=== PATIENT | female | born 1960 | race Hispanic/Latino ===

== ENCOUNTER 2018-01-26 10:49 | Outpatient (CLI) | payer MEDICARE, MEDICAID ==
[~2018-01-26 10:49] MED LIST: ISOVUE-370 76%-LOCM 1 ML ONE
== END 2018-01-26 10:50 | disposition home or self-care (01) ==
LOC: BICCT 10:49
PROVIDERS: ATTEND Internal Medicine Gastroenterology
DX: R10.32 Left lower quadrant pain (principal); R10.33 Periumbilical pain
CPT/HCPCS: 74177

== ENCOUNTER 2018-01-26 13:37 | Outpatient (CLI) | payer MEDICARE, OTHER | END 2018-01-26 13:38 | disposition home or self-care (01) | LOC: BICMAMMO 13:37 | PROVIDERS: ATTEND Family Medicine | DX: Z12.31 Encounter for screening mammogram for malignant neoplasm of breast (principal); Z85.43 Personal history of malignant neoplasm of ovary | CPT/HCPCS: 77063; 77067 ==

== ENCOUNTER 2019-09-27 16:31 | Emergency (ER) | payer MEDICARE, OTHER ==
[2019-09-27] MEDS ORDERED: Ketorolac Tromethamine 30 MG/ML VIAL ONE (16:56)
--- NOTE | 2019-09-27 17:32 | RAD ---
3 views of the lumbar spine: 09/27/2019 COMPARISON: None HISTORY: Back pain FINDINGS: There is multilevel lower lumbar spine facet hypertrophy, most prominent at the lumbosacral junction. No significant anterolisthesis or retrolisthesis is noted. 6 nonrib-bearing lumbar-type vertebral bodies are noted. At T12-L1 there is disc space narrowing with degenerative endplate change and anterior osteophyte formation. No acute fracture is appreciated. IMPRESSION: Multilevel degenerative change. No acute osseous abnormality.
== END 2019-09-27 18:16 | disposition home or self-care (01) ==
LOC: ERS 16:31
DX: M54.42 Lumbago with sciatica, left side (principal); K21.9 Gastro-esophageal reflux disease without esophagitis; B20 Human immunodeficiency virus [HIV] disease; E78.5 Hyperlipidemia, unspecified; E78.00 Pure hypercholesterolemia, unspecified; F41.9 Anxiety disorder, unspecified; F32.9 Major depressive disorder, single episode, unspecified; Z79.899 Other long term (current) drug therapy
CPT/HCPCS: 72100; 96372; J1885

== ENCOUNTER 2020-01-18 20:53 | Emergency (ER) | payer MEDICARE, OTHER ==
[2020-01-18 21:50] LABS: #Lymphocytes 1.8 thou/uL (1.20-3.40); #Monocytes 0.3 thou/uL (0.11-0.59); #Neutrophils 3.5 thou/uL (1.40-6.50); %Basophils 0.3 % (0.0-1.0); %Eosinophils 0.3 % (0.0-10.0); %Monocytes 5.4 % (0.0-10.0); Hemoglobin 11.7 g/dL (12.0-16.0); Mean Corpuscular HGB CONC 33.6 g/dL (32.0-36.0); Mean Corpuscular Hemoglobin 33.2 pg (27.0-31.0); Mean Platelet Volume 8.6 fL (7.4-10.4); Platelet Count 221 thou/uL (130-400); RBC Distribution Width 10.7 % (11.5-14.5); Red Blood Cell (RBC) Count 3.51 mill/uL (4.20-5.40); White Blood Cell (WBC) Count 5.6 thou/uL (4.8-10.8)
[2020-01-18 22:07] LABS: ALT (SGPT) 21 U/L (8-55); AST (SGOT) 25 U/L (5-34); Alkaline Phosphatase 73 U/L (40-110); Anion Gap 14 mmol/L (10-20); BUN (Urea Nitrogen) 10 mg/dL (9.8-20.1); Bilirubin, Total 0.2 mg/dL (0.2-1.2); Calc. Creatinine Clearance 0 mL/min (70-130); Calcium 8.9 mg/dL (7.8-10.44); Carbon Dioxide 25 mmol/L (22-29); Chloride 101 mmol/L (98-107); Estimated GFR-MDRD 60; Globulin 3.3 g/dL (2.4-3.5); Glucose 113 mg/dL (70-105); Potassium 3.8 mmol/L (3.5-5.1); Protein, Total 7.3 g/dL (6.0-8.3); Sodium 136 mmol/L (136-145)
[2020-01-18 22:44] LABS: Bacteria/HPF None Seen HPF (None Seen); Bilirubin Negative (Negative); Blood, Urine Negative (Negative); Clarity Clear (Clear); Glucose, Urine (Dipstick) Normal (Negative); Leukocyte 500 Leu/uL (Negative); Nitrite Negative (Negative); Protein, Urine (Dipstick) 20 mg/dL (Neg-Trace); RBC/HPF 0-3 HPF (0-3); Squamous Epithelial 0-3 HPF (0-3); Urobilinogen Normal mg/dL (Less than 2); WBC/HPF 21-50 HPF (0-3)
[2020-01-18] MEDS ORDERED: cefTRIAXone\\ROCEPHIN 2 GM VIAL ONE (22:54)
--- NOTE | 2020-01-19 07:14 | RAD ---
PORTABLE CHEST: Date: 01/18/2020 PROVIDED CLINICAL HISTORY: Headache. Shortness of breath. Fever. FINDINGS: Comparison with 07/23/2016. Cardiac silhouette appears enlarged, which may be at least partially on the basis of portable techniq ue. Large hiatal hernia is redemonstrated. No lobar consolidation, pleural fluid, or pneumothorax ayo arent. IMPRESSION: No evidence for an acute cardiopulmonary process. POS: [facility]
[2020-01-20 11:46] LABS: SARS-CoV-2 MS2 Positive; SARS-CoV-2 N Gene Positive; SARS-CoV-2 S Gene Positive; SARS-CoV-2 orf1ab Positive
== END 2020-01-18 23:52 | disposition home or self-care (01) ==
LOC: ERS 20:53
DX: U07.1 COVID-19 (principal); N30.00 Acute cystitis without hematuria; K21.9 Gastro-esophageal reflux disease without esophagitis; B20 Human immunodeficiency virus [HIV] disease; E78.5 Hyperlipidemia, unspecified; F41.9 Anxiety disorder, unspecified; Z79.899 Other long term (current) drug therapy
CPT/HCPCS: 71045; 80053; 83605; 83880; 84484; 85025; 87040; 87086; 87804 ×2; 93005; 96361; 96365; 99285; U0003; 36415; 81003; 81015; 87635; J0696

== ENCOUNTER 2020-11-05 15:55 | Outpatient (CLI) | payer MEDICARE, OTHER | END 2020-11-05 15:56 | disposition home or self-care (01) | LOC: BICMAMMO 15:55 | PROVIDERS: ATTEND Obstetrics & Gynecology | DX: Z12.31 Encounter for screening mammogram for malignant neoplasm of breast (principal) | CPT/HCPCS: 77063; 77067 ==

== ENCOUNTER 2021-07-14 19:14 | Emergency (ER) | payer MEDICARE, OTHER, MEDICAID ==
[2021-07-14] MEDS ORDERED: Guaifenesin DM 100-10/5 ML UDCUP PO SCH (22:45)
[2021-07-15 11:32] LABS: SARS-CoV-2 PCR by NAA Not Detected (NotDetected)
== END 2021-07-14 23:05 | disposition home or self-care (01) ==
LOC: ERS 19:14
DX: K44.9 Diaphragmatic hernia without obstruction or gangrene (principal); R05.9 Cough, unspecified; K21.9 Gastro-esophageal reflux disease without esophagitis; E78.5 Hyperlipidemia, unspecified; E78.00 Pure hypercholesterolemia, unspecified; Z20.822 Contact with and (suspected) exposure to COVID-19; Z87.891 Personal history of nicotine dependence; Z85.43 Personal history of malignant neoplasm of ovary; Z85.41 Personal history of malignant neoplasm of cervix uteri; Z87.19 Personal history of other diseases of the digestive system
CPT/HCPCS: 71045; 87081; 87430; 99285; U0003; U0005

== ENCOUNTER 2021-08-15 23:03 | Inpatient (IN) | payer MEDICARE, MEDICAID ==
[2021-08-16 02:51] LABS: #Basophils 0.1 thou/uL (0.0-0.2); #Lymphocytes 2.1 thou/uL (1.20-3.40); #Monocytes 0.5 thou/uL (0.11-0.59); %Basophils 0.6 % (0.0-1.0); %Eosinophils 0.2 % (0.0-10.0); %Lymphocytes 16.3 % (21.0-51.0); %Monocytes 4.1 % (0.0-10.0); %Neutrophils 78.8 % (42.0-75.0); Hemoglobin 14.6 g/dL (12.0-16.0); Mean Corpuscular HGB CONC 33.5 g/dL (32.0-36.0); Platelet Count 343 thou/uL (130-400); RBC Distribution Width 11.9 % (11.5-14.5); Red Blood Cell (RBC) Count 4.29 mill/uL (4.20-5.40); White Blood Cell (WBC) Count 12.7 thou/uL (4.8-10.8)
[2021-08-16 03:10] LABS: ALT (SGPT) 17 U/L (8-55); AST (SGOT) 18 U/L (5-34); Albumin 4.2 g/dL (3.5-5.0); Alkaline Phosphatase 62 U/L (40-110); Anion Gap 14 mmol/L (10-20); BUN (Urea Nitrogen) 11 mg/dL (9.8-20.1); Bilirubin, Total 0.8 mg/dL (0.2-1.2); Calc. Creatinine Clearance 0 mL/min (70-130); Calcium 10.2 mg/dL (7.8-10.44); Carbon Dioxide 23 mmol/L (22-29); Chloride 107 mmol/L (98-107); Globulin 3.6 g/dL (2.4-3.5); Glucose 118 mg/dL (70-105); Lipase 19 U/L (8-78); Potassium 4.2 mmol/L (3.5-5.1); Protein, Total 7.8 g/dL (6.0-8.3); Sodium 140 mmol/L (136-145)
[2021-08-16] MEDS ORDERED: Ondansetron PF 4 MG/2 ML Vial ONE (05:24)
[2021-08-16] MEDS ORDERED: Morphine 4 MG/ML VIAL ONE (06:43)
[2021-08-16 07:10] LABS: Bacteria/HPF None Seen HPF (None Seen); Bilirubin Negative (Negative); Blood, Urine Negative (Negative); Clarity Clear (Clear); Glucose, Urine (Dipstick) Normal (Negative); Ketone, Urine Negative (Negative); Leukocyte 75 Leu/uL (Negative); Nitrite Negative (Negative); Protein, Urine (Dipstick) 20 mg/dL (Neg-Trace); RBC/HPF 0-3 HPF (0-3); Squamous Epithelial 0-3 HPF (0-3); Urobilinogen Normal mg/dL (Less than 2)
[2021-08-16 07:11] LABS: Specific Gravity, Urine 1.044 (1.002-1.036)
[2021-08-16 07:12] LABS: Pregnancy Test - Urine (BHCG) Negative (Negative); Pregu Control Background? CLEAR/WHITE (CLR/WHITE); Pregu Control Bar Appear? YES (CONTROL BAR); Specific Gravity 1.044 (1.002-1.036)
[2021-08-16 07:45] LABS: SARS-CoV-2 NAA Rapid Test Not Detected (NotDetected)
[2021-08-16] MEDS ORDERED: Ondansetron PF 4 MG/2 ML Vial IVP PRN (10:51)
[2021-08-16] MEDS ORDERED: Acetaminophen 650 MG Suppository PR PRN (10:51)
[2021-08-16] MEDS ORDERED: Pantoprazole 40 MG VIAL IVP SCH (12:30)
[2021-08-16 13:15] VITALS: BMI 43.2
[2021-08-16] MEDS ORDERED: Benzocaine 20% Spray 60 ML CAN ONE (13:19)
[2021-08-16] MEDS: Lactated Ringer's 1,000 ML IV SCH ×2 (15:12→20:00)
[2021-08-16] MEDS: Morphine 4 MG/ML VIAL SLOW IVP PRN (19:57)
[2021-08-16] MEDS ORDERED: Famotidine/PF 20 mg/2ml Vial SLOW IVP SCH (21:00)
[2021-08-17] MEDS: Lactated Ringer's 1,000 ML IV SCH ×4 (04:27→21:35)
[2021-08-17] MEDS: Morphine 4 MG/ML VIAL SLOW IVP PRN ×4 (04:32→22:00)
[2021-08-17 08:30] LABS: Anion Gap 12 mmol/L (10-20); BUN (Urea Nitrogen) 12 mg/dL (9.8-20.1); Calc. Creatinine Clearance 139 mL/min (70-130); Calcium 9.1 mg/dL (7.8-10.44); Carbon Dioxide 29 mmol/L (22-29); Chloride 105 mmol/L (98-107); Glucose 97 mg/dL (70-105); Potassium 3.6 mmol/L (3.5-5.1); Sodium 142 mmol/L (136-145)
[2021-08-17 08:34] LABS: #Basophils 0.1 thou/uL (0.0-0.2); #Eosinphils 0.1 thou/uL (0.0-0.7); #Lymphocytes 1.8 thou/uL (1.20-3.40); #Monocytes 0.4 thou/uL (0.11-0.59); #Neutrophils 5.5 thou/uL (1.40-6.50); %Basophils 0.7 % (0.0-1.0); %Eosinophils 1.7 % (0.0-10.0); %Lymphocytes 22.9 % (21.0-51.0); %Monocytes 5.2 % (0.0-10.0); %Neutrophils 69.6 % (42.0-75.0); Hemoglobin 13.3 g/dL (12.0-16.0); Mean Corpuscular HGB CONC 31.9 g/dL (32.0-36.0); Mean Corpuscular Hemoglobin 33.1 pg (27.0-31.0); Mean Platelet Volume 8.7 fL (7.4-10.4); Platelet Count 279 thou/uL (130-400); RBC Distribution Width 11.8 % (11.5-14.5); Red Blood Cell (RBC) Count 4.01 mill/uL (4.20-5.40); White Blood Cell (WBC) Count 7.9 thou/uL (4.8-10.8)
[2021-08-17] MEDS: Pantoprazole 40 MG VIAL IVP SCH (09:30)
[2021-08-17] MEDS: Enoxaparin Sodium 40 MG/0.4 ML SYRINGE SC SCH (09:35)
[2021-08-17] MEDS ORDERED: Polyethylene Glycol 3350 17 GM Packet PO SCH (12:45)
[2021-08-17] MEDS ORDERED: Fleet Enema 133 ML BOT PR SCH (14:00)
[2021-08-17] MEDS ORDERED: Fleet Enema 133 ML BOT FS SCH (21:00)
[2021-08-17] MEDS: Polyethylene Glycol 3350 17 GM Packet PO SCH (21:35)
[2021-08-18] MEDS ORDERED: Polyethylene Glycol 3350 17 GM Packet PO SCH (01:00)
[2021-08-18] MEDS: Lactated Ringer's 1,000 ML IV SCH ×4 (04:26→22:17)
[2021-08-18 07:38] LABS: #Eosinphils 0.1 thou/uL (0.0-0.7); #Lymphocytes 1.9 thou/uL (1.20-3.40); #Monocytes 0.5 thou/uL (0.11-0.59); #Neutrophils 6.2 thou/uL (1.40-6.50); %Basophils 0.3 % (0.0-1.0); %Eosinophils 0.7 % (0.0-10.0); %Lymphocytes 21.7 % (21.0-51.0); %Monocytes 6.2 % (0.0-10.0); %Neutrophils 71.1 % (42.0-75.0); Hemoglobin 12.5 g/dL (12.0-16.0); Mean Corpuscular HGB CONC 32.4 g/dL (32.0-36.0); Mean Corpuscular Hemoglobin 33.2 pg (27.0-31.0); Mean Platelet Volume 8.3 fL (7.4-10.4); Platelet Count 261 thou/uL (130-400); RBC Distribution Width 11.5 % (11.5-14.5); Red Blood Cell (RBC) Count 3.75 mill/uL (4.20-5.40); White Blood Cell (WBC) Count 8.8 thou/uL (4.8-10.8)
[2021-08-18 07:41] LABS: Anion Gap 13 mmol/L (10-20); BUN (Urea Nitrogen) 7 mg/dL (9.8-20.1); Calc. Creatinine Clearance 149 mL/min (70-130); Carbon Dioxide 26 mmol/L (22-29); Chloride 102 mmol/L (98-107); Potassium 3.8 mmol/L (3.5-5.1); Sodium 137 mmol/L (136-145)
[2021-08-18 07:42] LABS: Glucose 99 mg/dL (70-105)
[2021-08-18] MEDS: Pantoprazole 40 MG VIAL IVP SCH (08:51)
[2021-08-18] MEDS: Polyethylene Glycol 3350 17 GM Packet PO SCH ×2 (08:52→22:17)
[2021-08-18] MEDS: Enoxaparin Sodium 40 MG/0.4 ML SYRINGE SC SCH (08:52)
[2021-08-18] MEDS: Morphine 4 MG/ML VIAL SLOW IVP PRN (10:24)
[2021-08-18] MEDS ORDERED: MD-Gastroview 120 ML BOT ONE (12:13)
[2021-08-18] MEDS ORDERED: SODIUM CHLORIDE 0.9% IVPB SCH (12:45)
[2021-08-18] MEDS ORDERED: ERYTHROMYCIN IVPB SCH (12:45)
[2021-08-18] MEDS: Acetaminophen 325 MG TAB PO PRN (18:18)
[2021-08-18] MEDS: ERYTHROMYCIN IVPB SCH (22:17)
[2021-08-18] MEDS: SODIUM CHLORIDE 0.9% IVPB SCH (22:17)
[2021-08-19 05:21] LABS: #Eosinphils 0.2 thou/uL (0.0-0.7); #Lymphocytes 1.8 thou/uL (1.20-3.40); #Monocytes 0.5 thou/uL (0.11-0.59); #Neutrophils 3.4 thou/uL (1.40-6.50); %Basophils 0.7 % (0.0-1.0); %Eosinophils 2.7 % (0.0-10.0); %Lymphocytes 31.2 % (21.0-51.0); %Monocytes 7.7 % (0.0-10.0); %Neutrophils 57.7 % (42.0-75.0); Hemoglobin 12.2 g/dL (12.0-16.0); Mean Corpuscular HGB CONC 32.5 g/dL (32.0-36.0); Mean Corpuscular Hemoglobin 33.5 pg (27.0-31.0); Mean Platelet Volume 8.1 fL (7.4-10.4); Platelet Count 254 thou/uL (130-400); RBC Distribution Width 11.5 % (11.5-14.5); Red Blood Cell (RBC) Count 3.64 mill/uL (4.20-5.40); White Blood Cell (WBC) Count 5.8 thou/uL (4.8-10.8)
[2021-08-19 05:45] LABS: Anion Gap 12 mmol/L (10-20); BUN (Urea Nitrogen) 6 mg/dL (9.8-20.1); Calc. Creatinine Clearance 169 mL/min (70-130); Carbon Dioxide 25 mmol/L (22-29); Chloride 107 mmol/L (98-107); Glucose 92 mg/dL (70-105); Potassium 3.4 mmol/L (3.5-5.1); Sodium 141 mmol/L (136-145)
[2021-08-19] MEDS: Lactated Ringer's 1,000 ML IV SCH ×2 (05:51→15:08)
[2021-08-19] MEDS: SODIUM CHLORIDE 0.9% IVPB SCH ×2 (08:09→15:08)
[2021-08-19] MEDS: ERYTHROMYCIN IVPB SCH ×2 (08:09→15:08)
[2021-08-19] MEDS: Polyethylene Glycol 3350 17 GM Packet PO SCH (08:10)
[2021-08-19] MEDS: Pantoprazole 40 MG VIAL IVP SCH (08:10)
[2021-08-19] MEDS: Enoxaparin Sodium 40 MG/0.4 ML SYRINGE SC SCH (08:10)
[2021-08-19] MEDS ORDERED: Potassium Chloride 20 MEQ TAB PO SCH (09:15)
[2021-08-19 09:43] LABS: Magnesium 1.9 mg/dL (1.6-2.6); Phosphorus 2.6 mg/dL (2.3-4.7)
[2021-08-19] MEDS: Acetaminophen 325 MG TAB PO PRN (10:49)
[2021-08-19 15:53] VITALS: BP 156/103; TEMP 97.7
== END 2021-08-19 16:11 | disposition home or self-care (01) | DRG 389 ==
LOC: ERS 23:03 → ERHOLD 08-16 07:18 → T4-B 08-16 14:34
PROVIDERS: ADMIT Family Medicine; ATTEND Family Medicine
PROC: 0D9670Z Drainage of Stomach with Drainage Device, Via Natural or Artificial Opening (ICD-10-PCS; principal; 2021-08-16)
DX: K56.7 Ileus, unspecified (principal); B20 Human immunodeficiency virus [HIV] disease; Z20.822 Contact with and (suspected) exposure to COVID-19; K21.9 Gastro-esophageal reflux disease without esophagitis; F41.9 Anxiety disorder, unspecified; F32.A Depression, unspecified; I10 Essential (primary) hypertension; D50.9 Iron deficiency anemia, unspecified; D53.9 Nutritional anemia, unspecified; J45.990 Exercise induced bronchospasm; E78.5 Hyperlipidemia, unspecified; E78.00 Pure hypercholesterolemia, unspecified; Z85.41 Personal history of malignant neoplasm of cervix uteri; Z85.43 Personal history of malignant neoplasm of ovary; Z92.21 Personal history of antineoplastic chemotherapy; Z90.710 Acquired absence of both cervix and uterus; Z90.722 Acquired absence of ovaries, bilateral; Z79.899 Other long term (current) drug therapy; Z90.49 Acquired absence of other specified parts of digestive tract; Z82.49 Family history of ischemic heart disease and other diseases of the circulatory system; Z82.69 Family history of other diseases of the musculoskeletal system and connective tissue; Z87.891 Personal history of nicotine dependence
CPT/HCPCS: 36415; 36416; 71045; 74177; 74250; 80048; 80053; 81003; 81015; 81025; 83690; 83735; 84100; 85025; 87086; 93005; 96372; 96374; 96375; C9113; J0500; J1364; J1650; J2270; J2405; J7050; J7120; Q9963; U0002

== ENCOUNTER 2022-02-26 10:42 | Outpatient (CLI) | payer OTHER, MEDICAID | END 2022-02-26 10:43 | disposition home or self-care (01) | LOC: BICMAMMO 10:42 | PROVIDERS: ATTEND Obstetrics & Gynecology | DX: Z12.31 Encounter for screening mammogram for malignant neoplasm of breast (principal); R92.1 Mammographic calcification found on diagnostic imaging of breast; Z80.3 Family history of malignant neoplasm of breast; Z85.43 Personal history of malignant neoplasm of ovary | CPT/HCPCS: 77063; 77067 ==

== ENCOUNTER 2023-03-24 14:50 | Outpatient (CLI) | payer OTHER | END 2023-03-24 14:51 | disposition home or self-care (01) | LOC: BICMAMMO 14:50 | PROVIDERS: ATTEND Student in an Organized Health Care Education/Training Program | DX: Z12.31 Encounter for screening mammogram for malignant neoplasm of breast (principal); Z80.3 Family history of malignant neoplasm of breast; Z85.43 Personal history of malignant neoplasm of ovary | CPT/HCPCS: 77063; 77067 ==

== ENCOUNTER 2024-06-12 17:51 | Emergency (ER) | payer OTHER | END 2024-06-12 22:40 | disposition home or self-care (01) | LOC: ERS 17:51 | DX: S82.402A Unspecified fracture of shaft of left fibula, initial encounter for closed fracture (principal); W01.0XXA Fall on same level from slipping, tripping and stumbling without subsequent striking against object, initial encounter | CPT/HCPCS: 29515; 96372 ==

== ENCOUNTER 2025-03-07 14:47 | Outpatient (CLI) | payer OTHER, MEDICAID | END 2025-03-07 14:48 | disposition home or self-care (01) | LOC: BICMAMMO 14:47 | PROVIDERS: ATTEND Family Medicine | DX: Z12.31 Encounter for screening mammogram for malignant neoplasm of breast (principal); Z80.3 Family history of malignant neoplasm of breast; Z85.43 Personal history of malignant neoplasm of ovary; Z85.41 Personal history of malignant neoplasm of cervix uteri | CPT/HCPCS: 77063; 77067 ==